=== PATIENT | male | born 1975 | race Hispanic/Latino ===

== ENCOUNTER → 2021-09-12 | Outpatient (CLI) | payer OTHER | END | disposition home or self-care (01) | LOC: SLP 20:28 | PROVIDERS: ATTEND Physician Assistant Medical | DX: G47.8 Other sleep disorders (principal) | CPT/HCPCS: 95810 ==

== ENCOUNTER → 2024-10-28 | Outpatient (CLI) | payer OTHER ==
--- NOTE | 2024-10-28 13:41 | HMCIMG ---
CT CORONARY CALCIFICATION SCORING: Anatomic images were reviewed. The calcium score is being generated and reported separately. This report is for the visualized anatomy only. Visualized portions of the lungs are clear. Hilar and mediastinal structures appear normal. Osseous structures are unremarkable. Impression: 1. Negative noncardiac anatomic findings. 2. The calcium score is 16.6 consistent with a mild degree of kyphotic plaque. This is 60th percentile for a patient this age. CT was performed with one or more following dose reduction techniques: automated exposure control, adjustment of the mA and kv according to patient's size, or use of a iterative reconstruction technique.
== END | disposition home or self-care (01) ==
LOC: RAH 12:38
PROVIDERS: ATTEND Internal Medicine Cardiovascular Disease
DX: Z13.6 Encounter for screening for cardiovascular disorders (principal); I25.10 Atherosclerotic heart disease of native coronary artery without angina pectoris
CPT/HCPCS: 75571

== ENCOUNTER → 2025-06-21 | Outpatient (CLI) | payer OTHER ==
[2025-06-21 21:28] VITALS: PULSE 54; RESP 12
[2025-06-21 22:03] VITALS: PULSE 50; RESP 12
[2025-06-21 22:30] VITALS: PULSE 50; RESP 12
[2025-06-21 23:03] VITALS: PULSE 54; RESP 10
[2025-06-21 23:33] VITALS: PULSE 51; RESP 10
[2025-06-22] VITALS (11 sets, daily range): PULSE 46–55; RESP 10–12
== END | disposition home or self-care (01) ==
LOC: SLP 19:41
PROVIDERS: ATTEND Internal Medicine Cardiovascular Disease
DX: G47.30 Sleep apnea, unspecified (principal); I48.0 Paroxysmal atrial fibrillation
CPT/HCPCS: 95810